=== PATIENT | female | born 1995 | race Caucasian/White ===

== ENCOUNTER 2018-01-15 16:00 | Outpatient (CLI) | payer OTHER | END 2018-01-15 16:01 | disposition home or self-care (01) | LOC: SLEEPLAB 16:00 | PROVIDERS: ATTEND Family Medicine | DX: G47.10 Hypersomnia, unspecified (principal); G47.33 Obstructive sleep apnea (adult) (pediatric); R53.83 Other fatigue | CPT/HCPCS: 95806 ==

== ENCOUNTER 2019-03-08 07:32 | Outpatient (CLI) | payer OTHER ==
--- NOTE | 2019-03-08 09:25 | ULT ---
TRANSABDOMINAL AND ENDOVAGINAL ULTRASOUND: Date: 03/08/19 HISTORY: Dyspareunia. COMPARISON: None. TECHNIQUE: Transabdominal and endovaginal imaging of the pelvis is performed. Ovaries interrogated with [facility] le imaging. FINDINGS: Uterus is identified, measuring 6.8 x 2.6 x 3.8 cm. Endometrium has a homogeneous echotexture, measur ing 0.3 cm. Right ovary has a normal echotexture measuring 1.8 x 2.4 x 1.3 cm. Left ovary has a normal echotextur e measuring 2.2 x 1.5 x 1.2 cm. There is no free fluid. IMPRESSION: Unremarkable pelvic ultrasound. POS: OFF
== END 2019-03-08 07:33 | disposition home or self-care (01) ==
LOC: BICULT 07:32
PROVIDERS: ATTEND Family Medicine
DX: N94.10 Unspecified dyspareunia (principal)
CPT/HCPCS: 76856

== ENCOUNTER 2020-08-24 17:27 | Outpatient (CLI) | payer BC ==
[2020-08-24 19:36] LABS: #Basophils 0.1 10x3/uL (0.0-0.2); #Eosinphils 0.1 10x3/uL (0.0-0.5); #Monocytes 0.5 10x3/uL (0.0-1.1); #Neutrophils 7.5 10x3/uL (1.5-8.4); %Basophils 0.5 % (0.0-2.0); %Lymphocytes 21.4 % (18.0-47.0); %Monocytes 4.9 % (0.0-10.0); %Neutrophils 71.8 % (40.0-75.0); Hemoglobin 12.5 g/dL (12.0-15.5); Mean Corpuscular HGB CONC 34.4 g/dL (32.0-36.0); Mean Corpuscular Volume 84.2 fl (81.6-98.3); Mean Platelet Volume 11.7 fl (7.4-10.4); Platelet Count 305 10x3/uL (150-450); RBC Distribution Width 12.4 % (11.5-14.5); Red Blood Cell (RBC) Count 4.31 10x6/uL (3.90-5.03); White Blood Cell (WBC) Count 10.5 10x3/uL (3.5-10.5)
[2020-08-24 19:55] LABS: ALT (SGPT) 46 U/L (8-55); AST (SGOT) 28 U/L (5-34); Albumin 4.1 g/dL (3.5-5.0); Alkaline Phosphatase 62 U/L (40-110); Anion Gap 17 mmol/L (10-20); BUN (Urea Nitrogen) 11 mg/dL (7.0-18.7); Bilirubin, Total 0.4 mg/dL (0.2-1.2); Calc. Creatinine Clearance 0 mL/min (70-130); Calcium 8.9 mg/dL (7.8-10.44); Carbon Dioxide 21 mmol/L (22-29); Chloride 104 mmol/L (98-107); Globulin 2.7 g/dL (2.4-3.5); Glucose 62 mg/dL (70-105); Potassium 3.8 mmol/L (3.5-5.1); Protein, Total 6.8 g/dL (6.0-8.3); Sodium 138 mmol/L (136-145)
[2020-08-24 20:22] LABS: BHCG - Serum Negative (NEGATIVE); Pregs Control Background? CLEAR/WHITE (CLR/WHITE); Pregs Control Bar Appear? YES (CONTROL BAR)
[2020-08-25 01:49] LABS: SARS-CoV-2 PCR by NAA Not Detected (NotDetected)
== END 2020-08-24 17:28 | disposition home or self-care (01) ==
LOC: LABBT 17:27
PROVIDERS: ATTEND Specialist
DX: Z01.812 Encounter for preprocedural laboratory examination (principal); K80.00 Calculus of gallbladder with acute cholecystitis without obstruction; Z20.822 Contact with and (suspected) exposure to COVID-19
CPT/HCPCS: 80053; 84703; 85025; 87635; U0003; U0005

== ENCOUNTER 2020-08-28 07:34 | Day surgery (SDC) | payer BC ==
[2020-08-25 11:24] VITALS: BMI 26.5
[2020-08-28] MEDS ORDERED: Acetaminophen 500 MG TAB ONE (08:03)
[2020-08-28] MEDS ORDERED: Ketorolac Tromethamine 30 MG/ML VIAL ONE (08:03)
[2020-08-28] MEDS ORDERED: Scopolamine 1.5 mg/72 hour Patch ONE (08:03)
[2020-08-28] MEDS ORDERED: Midazolam HCl 2 mg/2 ml Vial ONE (09:57)
[2020-08-28] MEDS ORDERED: Fentanyl 100 MCG/2 ML VIAL ONE ×5 (09:57→11:55)
[2020-08-28] MEDS ORDERED: Rocuronium Bromide 10 MG/ML (10ML VIAL) ONE (10:10)
[2020-08-28] MEDS ORDERED: Dexamethasone 20 MG/5 ML VIAL ONE (10:10)
[2020-08-28] MEDS ORDERED: PROPOFOL 200 MG/20 ML VIAL ONE (10:10)
[2020-08-28] MEDS ORDERED: Lidocaine 1% PF 5 ML VIAL ONE (10:10)
[2020-08-28] MEDS ORDERED: Ondansetron PF 4 MG/2 ML Vial ONE (10:10)
[2020-08-28] MEDS ORDERED: SUGAMMADEX SODIUM 200 MG/2 ML VIAL ONE (10:43)
[2020-08-28] MEDS ORDERED: Bupivacaine PF 0.5% 30 ML VIAL ONE (11:10)
[2020-08-28] MEDS ORDERED: Lidocaine 1% w/Epinephrine 1:100K 20 ML VIAL ONE (11:10)
[2020-08-28] MEDS ORDERED: HYDROcodone/Acetaminophen 5/325 mg Tablet ONE (12:31)
== END 2020-08-28 14:30 | disposition home or self-care (01) ==
LOC: SDC 07:34
PROVIDERS: ATTEND Specialist
PROC: 0FT44ZZ Resection of Gallbladder, Percutaneous Endoscopic Approach (ICD-10-PCS; principal; 2020-08-28)
DX: K80.10 Calculus of gallbladder with chronic cholecystitis without obstruction (principal); J30.2 Other seasonal allergic rhinitis; Z79.899 Other long term (current) drug therapy; Z91.013 Allergy to seafood
CPT/HCPCS: 88304; J0690; J1100; J1885; J2250; J2405; J2704; J3010; S0020